=== PATIENT | female | born 1965 | race Caucasian/White ===

== ENCOUNTER → 2017-12-04 12:18 | Outpatient (CLI) | payer BC, SELFPAY ==
[2017-12-04 13:55] LABS: Estradiol 25.3 pg/mL
[2017-12-04 13:59] LABS: Progesterone Level 8.14 ng/mL (See Comment)
[2017-12-09 12:52] LABS: HPV Reflexed? NOT INDICATED
== END ==
PROVIDERS: Visit Provider Obstetrics & Gynecology
DX: Z12.4 Encounter for screening for malignant neoplasm of cervix (principal); Z78.0 Asymptomatic menopausal state
CPT/HCPCS: 36415; 82670; 84144; 88175; G0145

== ENCOUNTER → 2018-05-26 06:53 | Outpatient (CLI) | payer BC, SELFPAY ==
--- NOTE | 2018-05-26 06:58 | CT_ITS ---
STUDY: CT MAXILLOFACIAL SINUSES REASON FOR EXAM: Female, 52 years old. Chronic sinusitis worse on the left side. RADIATION DOSAGE (If Supplied By Facility): CTDIvol = ( 33.06 ) mGy, DLP = ( 792.53 ) mGycm TECHNIQUE: The patient was scanned in a multi detector CT scanner. High resolution axial imaging was performed without the administration of intravenous contrast material. Sagittal and coronal images were reconstructed. Individualized dose optimization techniques were used for this CT. COMPARISON: None. FINDINGS: FRONTAL SINUSES: Normal aeration, without mucosal inflammatory disease. ETHMOIDAL SINUSES: Mild degree of mucosal thickening of the ethmoid sinuses. MAXILLARY SINUSES: There is a 1.2 cm x 0.9 cm mucosal retention cyst or polyp along the anterior medial aspect of the left maxillary sinus. SPHENOIDAL SINUSES: Normal aeration, without mucosal inflammatory disease. There is patency of the bilateral maxillary infundibuli with normal uncinate processes, ethmoid bullae, and hiatus semilunaris. Normal bilateral middle turbinates. There is hypertrophy of the right inferior nasal turbinate. Normal midline nasal septum. There is patency of the bilateral nasal airways. The visualized osseous structures are normal. The visualized bilateral orbital contents are normal. CT/Sinus/Facial Bone IMPRESSION: Small mucosal polyp or retention cyst along the anterior medial aspect of the left maxillary sinus. Mild degree of mucosal thickening of the ethmoid sinuses bilaterally. Electronically Signed: Vu Bergman, at 11:21 EDT , Service support ,
== END ==
PROVIDERS: Family Provider Internal Medicine; PCP Internal Medicine; Referring Provider Otolaryngology Otolaryngology/Facial Plastic Surgery; Visit Provider Otolaryngology Otolaryngology/Facial Plastic Surgery
DX: J32.9 Chronic sinusitis, unspecified (principal)
CPT/HCPCS: 70486

== ENCOUNTER 2019-01-08 09:38 | Day surgery (SDC) | payer OTHER, SELFPAY ==
[2019-01-08] VITALS (9 sets, daily range): BP systolic 91–138; BP diastolic 60–97; PULSE 57–86; RESP 16; TEMP 36.3–37.1; O2SAT 92–100; BMI 26.5
[2019-01-08] MEDS: Oxymetazoline 0.05% 1 SPRAY SPRAY.BTL 15 SPRAY (11:15)
--- NOTE | 2019-01-08 11:15 | SEP_PTH ---
PATIENT: ARMANI MELCHOR LOC: [facility] [place] U#:[id number] AGE/SX: 53/F ROOM: RE01/08/[address]: Jenaro Elam MD : 1965 BED: DIS: 01/08/2019 SPEC #: [id number] RECD: 01/08/19 12:42 STATUS: MYRON RENathan #: [id number] ELLE: 01/08/19 11:[address]: Jenaro Elam DEPT: SURGICAL PATHOLOGY RECD BY: Dave Lay ENTERED: 01/08/19 13:53 SP TYPE: SEPTUM OTHR DR: Dr. Tawana Lange MD Tissues: Nasal septum, NOS Procedures: Decalcification bone/plaque Surgery Specimen Level III HEADER OPERATION: Septoplasty PRE-OP DIAGNOSIS: Nasal congestion; deviated nasal septum; hypertrophy of turbinates TISSUE SUBMITTED: Septum and cartilage MICROSCOPIC DIAGNOSIS Septum and cartilage, septoplasty: Cartilage and bone with focal fibrosis; clinically deviated nasal septum and turbinate hypertrophy. CE:griselda 01/14/19 MICROSCOPIC DESCRIPTION Slides are reviewed. GROSS DESCRIPTION Received in fixative is one container labeled with the patient's name and designated septum and cartilage. The specimen consists of multiple irregular fragments of pink-juarez bone and cartilage that in aggregate measure 3 x 1.5 x 0.2 cm. The specimen is totally submitted in one cassette after decalcification. / AM:griselda 01/08/19 TC:5 CPT: 84076, 44079
[2019-01-08] MEDS: Mixture 30 ML Bottle TOPICAL (11:20)
[2019-01-08] MEDS: Neomycin/Bacitracin/Polymyxin Ointment 1 APPLIC (11:49)
--- NOTE | 2019-01-08 11:57 | PCM.DC ---
You will use the following diet at home:: No restrictions Discharge Activity: Return to Normal Activity - Head of bed elevation. Do not blow nose, rather use saline spray to rinse, sniff and expectorate as often as desired. May use Afrin nasal spray to reduce any oozing and/or reduce congestion. Take antibiotic as prevention of infection. Allergies/Adverse Reactions: Allergies latex Allergy (Verified 01/08/19 10:02) Rash Medications to take at Discharge Estradiol [Vivelle-Dot] 1 patch TOPICAL MOFR 09/14/13 Fluticasone 0.05% [Flonase Nasal [place]] 1 spray NASAL DAILY PRN 09/14/13 Levothyroxine [Synthroid] 125 mcg PO DAILY 09/14/13 Lisinopril [Zestril] 10 mg PO DAILY 09/14/13 Progesterone, Micronized [Progesterone] 200 mg PO DAILY 09/14/13 Buspirone HCl 7.5 mg PO TID 01/01/19 Calcium Carbonate [Calcium] 500 mg PO DAILY 01/01/19 Cholecalciferol (Vitamin D3) [Vitamin D3] 50 mg PO BID 01/01/19 Primary Care Physician: Tawana Lange MD [Primary Care Provider] - Test Results: Test results from this visit will be discussed in further detail at your follow-up appointment, if applicable. Please Follow Up With: Jenaro Elam MD - follow up appointment in 8-12 days to remove splints.
--- NOTE | 2019-01-08 12:02 | DCINST_ITS ---
You will use the following diet at home:: No restrictions Discharge Activity: Return to Normal Activity - Head of bed elevation. Do not b low nose, rather use saline spray to rinse, sniff and expectorate as often as desired. May use Afrin nasal spray to reduce any oozing and/or reduce congestion. Take antibiotic as prevention of infection. Allergies/Adverse Reactions: Allergies latex Allergy (Verified 01/08/19 10:02) Rash Medications to take at Discharge Estradiol [Vivelle-Dot] 1 patch TOPICAL MOFR 09/14/13 Fluticasone 0.05% [Flonase Nasal [place]] 1 spray NASAL DAILY PRN 09/14/13 Levothyroxine [Synthroid] 125 mcg PO DAILY 09/14/13 Lisinopril [Zestril] 10 mg PO DAILY 09/14/13 Progesterone, Micronized [Progesterone] 200 mg PO DAILY 09/14/13 Buspirone HCl 7.5 mg PO TID 01/01/19 Calcium Carbonate [Calcium] 500 mg PO DAILY 01/01/19 Cholecalciferol (Vitamin D3) [Vitamin D3] 50 mg PO BID 01/01/19 Primary Care Physician: Tawana Lange MD [Primary Care Provider] - Test Results: Test results from this visit will be discussed in further detail at your follow- up appointment, if applicable. Please Follow Up With: Jenaro Elam MD - follow up appointment in 8-12 days to remove splints.
--- NOTE | 2019-01-08 12:58 | OP.PCM_ITS ---
Report of Operation Date of Procedure: 01/08/19 Pre-Operative Diagnosis: Nasal airway obstruction, septal deformity, turbinate hypertrophy Post-Operative Diagnosis: Same Surgery/Procedure Performed:: Nasal septoplasty, therapeutic outfracture and submucosal cautery of inferior turbinates using Alan bipolar probe Anesthesiologist: Donato Hoffman CRNA Estimated Blood Loss (mL): 30 Description of Procedure: The patient was transported to the operating room and placed on the OR table in the supine position. After the administration of adequate general endotracheal anesthesia the patient was appropriately positioned eyes were treated taped closed and a head drape was applied. The nasal cavity was inspected. Turbinates were very hypertrophic and subsequently did diminish after application with Afrin spray. Additionally pledgets soaked in Mateusz-Synephrine Xylocaine were utilized to bring about further vasoconstriction and decongestion. After establishing decongestion it was obvious that the septum had a huge spur at the chondro-osseous junction did literally impaled the left lateral nasal wall. This is been the main issue with regard to her left-sided nasal congestion that occurred regardless of the control of allergy and turbinate engorgement. 1% Xylocaine with epinephrine 1-100,000 was used to infiltrate the anterior aspect of the septum including injecting along the left quadrangular cartilage to the region of the spur. After allowing adequate time for vasoconstrictive effect to take place a right hemitransfixion incision was created with a #15 scalpel and the soft tissues were elevated in the subperichondrial plane all along the left side of the septum. Using both Jaspal and [place] elevators the soft tissue was elevated and subsequently the posterior spur was skeletonized. Just anterior to it and incision was created so that a posterior tunnel could be elevated on the right side as well fully skeletonizing the posterior spur. With double-action scissors and forceps the spur structure was taken out in pieces. A small tear in the mucosa did occur due to the stellate nature of the spur but this cut or tear would have been placed intentio mary kay to allow egress of any fluids from between the mucoperichondrial/mucoperiosteal flaps. Once this had been excised it was evident that the septum was quite midline and the hemitransfixion incision was closed with interrupted suture 4-0 chromic. The inferior turbinates were then laterally outfractured into the inferior meatus and treated with the Alan bipolar probe. Submucosal cautery was achieved using this device. The probe was placed into the anterior aspect of the inferior turbinate and current was then applied. When blanching was evident the probe was advanced the length of the turbinate accomplishing submucosal cautery in the inferomedial aspect. The posterior tips received additional cautery with benefit of the 0 degree endoscope for guidance. Intranasal Richardson splints were then placed after first coating them and antibiotic ointment. The splints were secured with a single suture of 3-0 Ethilon. A nasal drip pad was applied and the procedure terminated. Patient tolerated the procedure well, did not sustain any intraoperative anesthetic or surgical complication, was extubated in the operating room and taken to the PACU where she was noted to be in satisfactory condition. Jenaro Elam MD
== END 2019-01-08 14:16 | disposition home or self-care (01) ==
LOC: SDC 09:39 → AC 09:41
PROVIDERS: Family Provider Internal Medicine; PCP Internal Medicine; Referring Provider Otolaryngology Otolaryngology/Facial Plastic Surgery; Visit Provider Otolaryngology Otolaryngology/Facial Plastic Surgery
PROC: (CPT 30520; principal; 2019-01-08 11:00)
DX: J34.2 Deviated nasal septum (principal); J34.3 Hypertrophy of nasal turbinates; R09.81 Nasal congestion; I10 Essential (primary) hypertension; Z85.850 Personal history of malignant neoplasm of thyroid
CPT/HCPCS: 30140; 30520; 88304; 88311; J7120; J2405

== ENCOUNTER 2019-01-23 23:15 | Emergency (ER) | payer OTHER, SELFPAY ==
[2019-01-08 10:06] VITALS: BMI 26.5
[2019-01-23 23:16] VITALS: BP 128/81; PULSE 114; RESP 16; TEMP 37; O2SAT 98; BMI 26.4
--- NOTE | 2019-01-24 00:48 | ED.DCSUM_ITS ---
- ER Visit Summary Date of Service: 01/24/19 Chief Complaint: Nosebleed History of Present Illness: The patient is a 53 F who presents with a nosebleed. Started today. She had bleeding from the right nares. She held pressure and it seemed to slow down. She denies any trauma. 2 weeks ago she had sinus s urgery with a septoplasty done by Dr. Elam. She denies any pain. There is no bleeding at this time. Physical Examination: Vital signs are reviewed. HEENT exam reveals no active bleeding. There is dried blood in the left nares. I am able to see some postsurgical changes. She is not swallowing any blood at this time. Her neck is supple. Neurologic exam normal Test Results: None performed Emergency Department Course and Treatment: Patient had Afrin on cotton balls placed into the nose. There is no active bleeding at this time. I still do not know where the bleeding was coming from but she is not bleeding. She is on no blood thinning medications. Patient will be discharged to call her ear nose and throat doctor in the morning. Treatment Plan: [] Disposition: Discharge Impression: Epistaxis This note was generated with [employer] dictation software. It may contain incorrect words, spelling, and punctuation that were not noted in review of the chart prior to signing ED Disposition - Plan for ED Patient: Referrals: Tawana Lange MD [Primary Care Provider] -
--- NOTE | 2019-01-24 00:50 | ED.DEP ---
ED Disposition - Plan for ED Patient: Disposition: Home or Assisted Living Instructions: Nosebleed Referrals: Tawana Lange MD [Primary Care Provider] -
[2019-01-24 00:52] VITALS: PULSE 94; RESP 16; O2SAT 94
[2019-01-24] MEDS: Oxymetazoline 0.05% 1 SPRAY SPRAY.BTL 2 SPRAY NASAL (00:52)
== END 2019-01-24 00:54 | disposition home or self-care (01) ==
PROVIDERS: Emergency Provider Emergency Medicine; Family Provider Internal Medicine; PCP Internal Medicine
DX: R04.0 Epistaxis (principal)
CPT/HCPCS: 30901; 99282

== ENCOUNTER → 2019-02-11 10:44 | Outpatient (CLI) | payer OTHER, SELFPAY ==
[2019-01-23 23:16] VITALS: BMI 26.4
[2019-02-11 13:24] LABS: Estradiol 23.9 pg/mL
[2019-02-11 13:54] LABS: Progesterone Level 142.36 ng/mL (See Comment)
[2019-02-18 09:56] LABS: HPV HC, High Risk Negative (Negative); HPV Reflexed? YES, CHARGE PATIENT
== END ==
PROVIDERS: Visit Provider Obstetrics & Gynecology
DX: N95.1 Menopausal and female climacteric states (principal); Z12.4 Encounter for screening for malignant neoplasm of cervix
CPT/HCPCS: 36415; 82670; 84144; 87624; 88175; G0145

== ENCOUNTER → 2019-04-30 16:10 | Outpatient (CLI) | payer OTHER, SELFPAY ==
[2019-04-30 17:39] LABS: Estradiol 31.7 pg/mL
[2019-04-30 18:02] LABS: Progesterone Level 0.37 ng/mL (See Comment)
== END ==
PROVIDERS: Family Provider Internal Medicine; PCP Internal Medicine; Referring Provider Obstetrics & Gynecology; Visit Provider Obstetrics & Gynecology
DX: N95.1 Menopausal and female climacteric states (principal)
CPT/HCPCS: 36415; 82670; 84144

== ENCOUNTER → 2021-03-29 | Outpatient (CLI) | payer OTHER, SELFPAY ==
--- NOTE | 2021-03-29 15:00 | EMB_PTH ---
PATIENT: ARMANI MELCHOR LOC: [facility] U#:[id number] AGE/SX: 55/F ROOM: RE03/29/[address]: Dr. Virginie Zafar MD : 1965 BED: DIS: 03/29/2021 SPEC #: [id number] RECD: 03/29/21 16:54 STATUS: MYRON BERTRAND #: [id number] ELLE: 03/29/21 15:[address]: Virginie Sierra DEPT: SURGICAL PATHOLOGY RECD BY: Karlos Evans ENTERED: 03/30/21 09:58 SP TYPE: ENDOM BX/C OT DR: Dr. Tawana Lange MD Tissues: Endometrium, NOS Procedures: Surgery Specimen Level IV HEADER OPERATION: Endometrial biopsy PRE-OP DIAGNOSIS: N95.0 TISSUE SUBMITTED: Endometrial biopsy MICROSCOPIC DIAGNOSIS Endometrium, biopsy: Strips of benign superficial glandular mucosa. Rare fragments of benign squamous mucosa. AM:griselda 03/31/2021 MICROSCOPIC DESCRIPTION Slides are reviewed. GROSS DESCRIPTION Received in fixative is one container labeled with the patient's name and designated endometrial biopsy. The specimen consists of multiple irregular fragments of juarez-pink soft tissue mixed with mucoid tissue and a few fragments of hemorrhagic tissue that in aggregate measure 2 x 2 x 0.2 cm. The specimen is totally submitted in one cassette. / SJ:rg 03/30/21 TC:5 CPT: 77246
[2021-03-29 16:33] LABS: Bacteria 0 SEEN /hpf (None Seen); Red Blood Cells-Urine 0 SEEN /hpf (0-5)
[2021-03-29 17:01] LABS: Color, Urine Yellow (Yellow); Glucose, Dipstick Normal (Normal); Ketone-Dipstick 5 mg/dl (Negative); Leukocyte Esterase-Dipstick Negative /ul (Negative); Nitrite-Dipstick Negative (Negative); Occult Blood-Urine Negative /ul (Negative); Protein-Dipstick Negative (Negative); Urine Bilirubin Dipstick Negative (Negative); Urine Clarity Clear (Clear); Urine Urobilinogen Normal (Normal)
[2021-03-29 17:28] LABS: Squamous Epithelial Cells - UA 0-5 SEEN /hpf (5-10)
[2021-03-29 17:29] LABS: Transitional Epithelial - Ur 0-5 SEEN /hpf (0-5); White Blood Cells 0-5 SEEN /hpf (0-5)
[2021-03-29 17:31] LABS: Mucous, Urine RARE /hpf (<or=2+)
[2021-04-05 08:15] LABS: HPV APTIMA, High Risk Negative (Negative)
== END | disposition home or self-care (01) ==
LOC: LABSPEC 16:24
PROVIDERS: PCP Internal Medicine; Visit Provider Obstetrics & Gynecology
DX: N95.0 Postmenopausal bleeding (principal); R30.0 Dysuria; Z12.4 Encounter for screening for malignant neoplasm of cervix
CPT/HCPCS: 81001; 87086; 87088; 87624; 88175; 88305; G0145

== ENCOUNTER 2022-06-29 13:23 | Day surgery (SDC) | payer OTHER, SELFPAY ==
--- NOTE | 2022-06-18 13:21 | PCM.HP.BLA ---
History and Physical Date of Admission: 06/29/22 Pre-Op History and Physical ? HPI: The patient is a 56 year old female presenting for discusison regarding PMB and hyperplasia w/o atypia on EMB specimen. Pt reports no concerns today ? pre-operative visit. She is scheduled for Hysteroscopy D&C and inseriton of Mirena IUD, for Endometrial hyperplasia on 06/29/22. Procedure discussed along with risks, benefits and complications. Other alternatives discussed for management. Consent form signed? Yes. ? ? PAST MEDICAL HISTORY PAST MEDICAL HISTORY Diagnosis Date ? Allergic rhinitis ? ? Hypertension ? ? Hypothyroidism, iatrogenic ? ? Thyroid cancer (HCC) ? ? papillary cancer thyroid ? ? PAST SURGICAL HISTORY PAST SURGICAL HISTORY Procedure Laterality Date ? COLONOSCOPY FLX DX W/COLLJ SPEC WHEN PFRMD ? 01/24/15 ? Colonoscopy ? THYROIDECTOMY TOTAL/COMPLETE ? ? ? 2005 ? ? ? CURRENT MEDICATIONS Current Outpatient Medications Medication Sig Dispense Refill ? progesterone micronized (PROMETRIUM) 200 mg capsule take 1 capsule by mouth at bedtime for 25 DAYS EACH MONTH 60 capsule 1 ? estradiol (IRVING, VIVELLE-DOT) 0.025 mg/24 hr Apply 1 Patch as directed twice daily. (Patient not taking: Reported on 06/11/2022) ? ? ? estradiol (ESTRACE) 0.01 % (0.1 mg/gram) vaginal cream Use 1 g vaginally as directed. Insert one applicator full vaginally x 14 nights then twice weekly. (Patient not taking: Reported on 06/11/2022) 42.5 g 3 ? lisinopril (ZESTRIL, PRINIVIL) 10 mg tablet Take 1 tablet by mouth once daily. 90 tablet 3 ? cholecalciferol (VITAMIN D-3) 5,000 unit tab Takes 1 tablet every other day ? ? ? levothyroxine (SYNTHROID) 125 mcg tablet Take 1 tablet by mouth once daily. 90 tablet 0 ? fluticasone (FLONASE) 50 mcg/actuation nasal spray Use 2 Sprays in each nostril once daily. Rinse mouth after use. 1 Each 11 ? fexofenadine-pseudoephedrine (CATHERINE D) 60-120 mg per tablet Take 1 tablet by mouth every 12 hours as needed (sinus congestion/cold symptoms). ? 0 ? No current facility-administered medications for this visit. ? ? ALLERGIES: Latex and Seasonal Allergies ? PERSONAL HISTORY: SOCIAL HISTORY Social History ? Tobacco Use ? Smoking status: Former ? Smokeless tobacco: Never Substance Use Topics ? Alcohol use: Yes ? ? Comment: occasional ? Drug use: No ? FAMILY HISTORY: FAMILY HISTORY FAMILY HISTORY Problem Relation Age of Onset ? Allergies Mother ? ? Hypertension Mother ? ? Stroke Mother ? ? ? REVIEW OF SYMPTOMS: negative except as noted above PHYSICAL EXAMINATION: ? VITALS: Blood pressure 138/86, weight 149 lb (67.6 kg), last menstrual period 05/12/2014. ? GENERAL: The patient is well nourished, well hydrated in no acute distress. , The patient is oriented to time, place, and person. NECK: full range of motion LUNGS: Clear to auscultation bilaterally. no wheezes, rhonchi or rales HEART: Regular rate and rhythm, Normal heart sounds, and No murmurs or gallops ? IMPRESSION: PMB with Hyperplasia without atypia ? ? Pre and post op instructions reviewed ? PLAN: Hysteroscopy, D&C, polypectomy MIRENA iud insertion ? Pt has been counseled on risks/benefits and alternatives of surgery including but not limited to anesthesia, bleeding, infection, uterine perforation with subsequent injury to pelvic structures including bowel, bladder, ureters and vessels. Pt wishes to proceed with surgery at this time. ? I have reviewed and updated past medical and surgical history, medications and allergies Antoinette Jones MD ?4:26 PM
[2022-06-29] VITALS (12 sets, daily range): BP systolic 43–126; BP diastolic 31–81; PULSE 23–78; RESP 16; TEMP 37–37.1; O2SAT 16–100; BMI 25.0
--- NOTE | 2022-06-29 | EMB_PTH ---
PATIENT: ARMANI MELCHOR LOC: [facility] [place] U#:[id number] AGE/SX: 56/F ROOM: RE06/29/[address]: Dr. Antoinette Diaz, MDDOB: 1965 BED: DIS: 06/29/2022 SPEC #: [id number] RECD: 07/02/22 08:08 STATUS: MYRON HANNANathan #: [id number] ELLE: 06/29/22 00:[address]: Antoinette Diaz DEPT: SURGICAL PATHOLOGY RECD BY: Karlos Evans ENTERED: 07/02/22 10:12 SP TYPE: ENDOM BX/C DAMIÁN DR: Dr. Tawana Lange MD Tissues: Endometrium, NOS Procedures: Surgery Specimen Level IV HEADER OPERATION: Hysteroscopy, D & C, possible polypectomy, Symphion, Mirena IUD PRE-OP DIAGNOSIS: PM with hyperplasia TISSUE SUBMITTED: Endometrial curettings MICROSCOPIC DIAGNOSIS Endometrial curettings: Inactive endometrium with focal cystic changes. Fragments of myometrium. See comment. AM:griselda 07/03/2022 COMMENT The specimen predominantly consists of fragments of myometrium. Clinical correlation and appropriate follow up are necessary. Please make reference to previous specimen ([id number]), endometrium, biopsy with diagnosis of ?strips of benign superficial glandular mucosa and rare fragment of benign squamous mucosa.? MICROSCOPIC DESCRIPTION Slides are reviewed. GROSS DESCRIPTION Received in fixative is one container labeled with the patient's name and designated endometrial curettings. The specimen consists of multiple irregular fragments of juarez tissue that in aggregate measure 2 x 0.6 x 0.1 cm. The specimen is totally submitted in one cassette. / AM:griselda 07/02/2022 TC:5 CPT: 21454
--- NOTE | 2022-06-29 14:07 | DCINST_ITS ---
Discharge Instructions Procedure D&C Diet Discharge Diet: No restrictions Activity May resume sexual activity in: 1 week Dressing / Incision Call your doctor if you observe: Fever of 101 or Higher, Inability to urinate, Using more than 1 pad per hour and Uncontrolled pain Follow Up Care Please Follow Up With: Antoinette Diaz MD When: 1-2 weeks post OP if you need an appointment please call [phone] Test Results: Test results from this visit will be discussed in further detail at your follow- up appointment, if applicable. Discharge Plan Admission Attending Provider: Antoinette Diaz Primary Care Provider: Tawana Lange Discharge Orders/Prescriptions Prescriptions: No Action levothyroxine 137 MCG tablet 125 mcg PO DAILY lisinopril 10 MG tablet 10 mg PO DAILY fluticasone propionate 1 SPRAY spray,suspension 1 spray NASAL DAILY PRN (Reason: Allergies) progesterone micronized 100 MG capsule 200 mg PO DAILY cholecalciferol (vitamin D3) [Vitamin D3] 400 UNIT capsule 500 mg PO DAILY Referrals / Follow Up: Tawana Lange MD [Primary Care Provider] - Disposition Disposition (needs filled in before D/C Order can be placed): Home, Self Care
--- NOTE | 2022-06-29 14:32 | OP.PCM_ITS ---
Report of Operation Date of Procedure: 06/29/22 Pre-Operative Diagnosis: PMB, Endometrial hyperplasia, endometrial polyp Post-Operative Diagnosis: Same Surgery/Procedure Performed:: Hysteroscopy, D&C, Polypectomy , Mirena IUD insertion Description of Surgical Findings:: Both tubal ostia visualized. Tiny Polyp noted on posterior aspect of uterus. Surgeon: Antoinette Diaz Type of Anesthesia: MAC Specimen's removed: endometrial curettings, endometrial polyp Drains: none Estimated Blood Loss (mL): 0cc Fluids Replaced: 500 Description of Procedure: Informed consent was obtained the patient was taken the operating room she was placed in supine position. She was given anesthesia. She was then placed in the [facility] where she was prepped and draped in the normal sterile fashion. At this time the weighted speculum was placed in the posterior fornix of vagina. Single-tooth tenaculum was used to gently grasp the anterior lip the cervix. At this time the uterine cavity was sounded to approximately 10 cm. Gentle dilatation was performed once adequate dilatation of the cervix was achieved the hysteroscope using normal saline as a distention medium was placed. Tubal ostia visualized, tiny endometrial polyp noted on posterior aspect of uterus otherwise it appeared atrophic. Symphion resecting device used to obtain endometrial curettings and to perform polypectomy. Tissue will be sent to pathology for evaluation. Mirena IUD device opened- Placed at uterine fundus. IUD strings cut to 2cm from OS. Tenaculum removed. Good hemostasis. Instrument, lap count correct x 2. fluid deficit 350cc Vaginal Sweep was negative. Grafts/Implants Used: Mirena IUD Procedure Start Time: 14:45 Procedure Stop Time: 14:54 Complications none Admit VTE Documentation VTE Present on Admission: Yes VTE Mechan Device Prophylaxis: SCD's VTE Pharm Prophylaxis ordered?: No
--- NOTE | 2022-06-29 15:12 | EKG12_ITS ---
Test Reason : SLOW HR Blood Pressure : / mmHG Vent. Rate : 069 BPM Atrial Rate : 069 BPM P-R Int : 158 ms QRS Dur : 096 ms QT Int : 420 ms P-R-T Axes : 064 057 049 degrees QTc Int : 450 ms Normal sinus rhythm Normal ECG When compared with ECG of 14-SEP-2013 09:03, No significant change was found Confirmed by PINKY FUENTES, TRACI ([id number]), mapping editor SHINE ORELLANA ([id number]) on 07/03/2022 12:55:21 PM Referred By: Antoinette Diaz Confirmed By:TRACI VANCE MD
[2022-06-29 16:13] LABS: Troponin-I HS 3 pg/mL (3.0-54.0)
[2022-06-29] MEDS: Lactated Ringers 1,000 ML 15 ML IV (16:15)
[2022-06-29] MEDS: HYDROcodone Bitartrate/Apap 5/325 Tablet PO (17:30)
--- NOTE | 2022-06-29 17:59 | SUR.PHASEI ---
AT APPROXIMATELY 1505, MONITOR SHOWS SINUS BRADYCARDIA WITH RATE DROPPING TO 40s. PATIENT IS DROWSY, BUT ABLE TO CONVERSE WITH NURSE. O2 SAT IS 94% ON ROOM AIR. DR HUDDLESTON, ANESTHESIA, STAT PAGE. O2 APPLIED AT 4L/NC. IV LACTATED RINGERS AT WIDE OPEN. HOB FLAT. ATROPINE 0.4 MG IV GIVEN BY DR HUDDLESTON AT 1510. MONITOR SHOW SINUS BRADYCARDIA WITH JUNCTIONAL AND VENTRICULAR ESCAPE BEATS; RATE 20 AT 1510. PER MONITOR, HEART RATE RETURNED TO SINUS RHYTHM 70s IN APPROXIMATELY 7-10 MIN. SBP RETURNED TO THE 90s IN APPROXIMATELYH 20 MIN. PATIENT NEVER LOST CONSCIOUSNESS. STAT EKG DONE. STAT TROPONIN LEVEL DRAWN AND SENT TO LAB. RECORD OF PATIENT'S VITAL SIGNS DURING THIS PERIOD OF TIME CAN BE FOUND IN CHART.
--- NOTE | 2022-06-29 18:26 | SUR.PHASEI ---
AT APPROXIMATELY 1520, DR HUDDLESTON SPOKE WITH DR DOSHI AND UPDATED HER ON THE PATIENT'S CONDITION. DR. DOSHI RECOMMENDS THE PATIENT FOLLOW UP WITH A AIRCRAFT STRESS ANALYST IN THE NEAR FUTURE.
== END 2022-06-29 17:40 | disposition home or self-care (01) ==
LOC: SDC 13:25 → AC 13:26
PROVIDERS: Anesthesiology; PCP Internal Medicine; Referring Provider Obstetrics & Gynecology; Visit Provider Obstetrics & Gynecology
PROC: 0UB98ZZ Excision of Uterus, Via Natural or Artificial Opening Endoscopic (ICD-10-PCS; CPT 58558; principal; 2022-06-29 14:40)
DX: N85.00 Endometrial hyperplasia, unspecified (principal); I10 Essential (primary) hypertension; E03.9 Hypothyroidism, unspecified; J45.909 Unspecified asthma, uncomplicated; F32.A Depression, unspecified; Z79.890 Hormone replacement therapy; Z79.899 Other long term (current) drug therapy; Z87.891 Personal history of nicotine dependence
CPT/HCPCS: 58558; 58300; 00952; 84484; 88305; 93005; J7120; J2405

== ENCOUNTER → 2022-10-01 | Outpatient (CLI) | payer OTHER, SELFPAY ==
--- NOTE | 2022-10-01 09:50 | ECHOD_ITS ---
Reason For Study: Arrhythmia Procedure This was a 2D Doppler, Color Flow transthoracic echocardiogram. Exam performed in department. Left Ventricle Normal LV size. Left ventricular systolic function is normal. The estimated ejection fraction is 60 %. Stage 1 diastolic dysfunction. No regional wall motion abnormalities noted. Right Ventricle Normal RV size. Normal systolic function. Atria Normal left atrium. Normal right atrium. Mitral Valve Normal mitral valve. Tricuspid Valve Normal tricuspid valve. Mild tricuspid valve insufficiency. Mild pulmonary hypertension. Aortic Valve Trisinus/trileaflet aortic valve. Great Vessels Normal aortic root. The pulmonary artery is normal size. Normal inferior vena cava. Pericardium/Pleural No pericardial effusion. MMode/2D Measurements & Calculations LVIDd: 4.0 cm IVSd: 0.96 cm Ao root diam: 3.1 cm LVIDs: 2.1 cm LVPWd: 0.88 cm RVDd: 2.7 cm FS: 46.0 % LAV(MOD-bp): 22.6 ml LVAd ap4: 16.0 cm2 SV(MOD-sp4): 22.2 ml LAV(MOD-bp) Indexed: 13.2 ml/m2 LVLd ap4: 6.4 cm LAV(MOD-sp2): 19.6 ml EDV(MOD-sp4): 33.1 ml LAV(MOD-sp4): 22.7 ml EDV(sp4-el): 34.0 ml LVAs ap4: 7.8 cm2 LVLs ap4: 4.7 cm ESV(MOD-sp4): 10.9 ml ESV(sp4-el): 10.9 ml EF(MOD-sp4): 67.0 % EF(sp4-el): 68.0 % SV(sp4-el): 23.1 ml LA dimension(2D): 2.7 cm LA A4 area: 12.2 cm2 RA A4 area: 10.3 cm2 Time Measurements MV dec time: 0.22 sec Doppler Measurements & Calculations MV E max erasto: 72.6 cm/sec Lat Peak E' Erasto: 8.2 cm/sec Med Peak E' Erasto: 5.1 cm/sec MV A max erasto: 95.9 cm/sec E/E' lat: 8.9 E/E' med: 14.3 MV E/A: 0.76 Ao V2 max: 157.6 cm/sec LV V1 max: 138.4 cm/sec MV dec slope: 333.2 cm/sec2 Ao max P.9 mmHg LV V1 max P.7 mmHg Ao V2 mean: 107.7 cm/sec Ao mean P.3 mmHg Ao V2 VTI: 29.9 cm PA V2 max: 94.1 cm/sec TR max erasto: 240.7 cm/sec TR max P.2 mmHg ECHO/Echo Complete Interpretation Summary Normal LV size. Left ventricular systolic function is normal. The estimated ejection fraction is 60 %. Mild tricuspid valve insufficiency. Mild pulmonary hypertension. Stage 1 diastolic dysfunction. Ordering Physician: Joaquin Sorto Referring Physician: Tawana Lange Performed By: Ana Ruth, RDKELSIE, RVT
== END | disposition home or self-care (01) ==
LOC: CVS 09:49
PROVIDERS: PCP Internal Medicine; Referring Provider Internal Medicine Cardiovascular Disease; Visit Provider Internal Medicine Cardiovascular Disease
DX: R00.1 Bradycardia, unspecified (principal); I27.20 Pulmonary hypertension, unspecified; I36.1 Nonrheumatic tricuspid (valve) insufficiency
CPT/HCPCS: 93306

== ENCOUNTER 2023-10-17 19:44 | Emergency (ER) | payer OTHER, SELFPAY ==
[2023-10-17 19:45] VITALS: BP 165/87; PULSE 88; RESP 16; TEMP 36.6; O2SAT 98; BMI 27.0
--- NOTE | 2023-10-17 19:59 | CT_ITS ---
STUDY: CT ABDOMEN AND PELVIS WITHOUT CONTRAST REASON FOR EXAM: Female, 58 years old. L flank pain RADIATION DOSAGE (If Supplied By Facility): CTDIvol = ( 8.05 ) mGy, DLP = ( 392.22 ) mGycm TECHNIQUE: Transaxial images were obtained from the dome of the diaphragm to the symphysis pubis without oral contrast, and without intravenous contrast. Sagittal and coronal images were reconstructed. Individualized dose optimization techniques were used for this CT. COMPARISON: None. FINDINGS: Tiny calcified granulomata in the left lower lobe.. The visualized portions of the heart are within normal limits. Small hiatal hernia is noted Normal liver. Normal gallbladder and extrahepatic biliary system. Normal spleen. Normal pancreas. Normal bilateral adrenal glands. Normal right kidney. Mild to moderate left renal pelvocaliectasis and hydroureter with stranding in the perinephric fat secondary to tiny calculus measuring 2 to 3 mm in the distal intramural portion of the ureter. Normal visualized stomach. Normal small intestine. Minor diverticular changes of the colon without evidence for acute diverticulitis. No evidence for acute appendicitis Minor atherosclerotic changes of the aorta without evidence for aneurysm. Normal inferior vena cava. Normal retroperitoneum. Normal urinary bladder. Mild prominence of the uterine fundus containing IUD. Normal abdominal wall. Normal osseous structures. CT/Abdomen/Pelvis without Cont IMPRESSION: Mild to moderate left renal obstruction secondary to tiny calculus in the distal intramural portion of the left ureter. Electronically Signed: Moncho Candelario MD at 22:01 EDT ,
--- NOTE | 2023-10-17 20:04 | EX.ED.DYSGE1 ---
HPI <ELODIA Alegria - Last Filed: 10/17/23 22:19> History of Present Illness Chief Complaint: Flank Pain Narrative Narrative: Patient presenting today due to sudden and severe left-sided flank pain that started this afternoon. She reports that she has had dysuria for little over a week now, she has been on 2 different antibiotics with no relief, she reports that her PCP did obtain a UA that showed a little bit of blood but overall was unremarkable, they also tried to treat her for a yeast infection with Diflucan but she is still continuing to have dysuria. She did not have flank pain until today. She denies any history of kidney stones. She reports that the pain is sharp and waxing and waning and when it becomes severe she becomes nauseous, she has had 3 episodes of vomiting today. She denies fevers, chills, diarrhea, and abdominal pain. PFSH <ELODIA Alegria - Last Filed: 10/17/23 22:19> [facility] Medical History Alcohol use Allergic rhinitis Asthma Cancer Endometrial hyperplasia Essential hypertension History of concussion (~1981) Hypothyroidism Non-smoker Thyroid disease Wears glasses Home Medications lisinopril 10 mg tablet 10 mg PO DAILY 09/14/13 [History Last Taken 09/16/13 10 MG] cholecalciferol (vitamin D3) 125 mcg (5,000 unit) tablet 125 mcg PO Q OTHER DAY 09/17/22 [History Last Taken Unknown] levothyroxine 125 mcg tablet 125 mcg PO DAILY 09/17/22 [History Last Taken Unknown] Bonafide Relizen 2 cap PO DAILY 09/19/22 [History Last Taken Unknown] fexofenadine 180 mg tablet (Ingrid Allergy) 180 mg PO DAILY 09/19/22 [History Last Taken Unknown] fluticasone propionate 50 mcg/actuation nasal spray,suspension 2 spray intranasal DAILY PRN Allergies 09/19/22 [History Last Taken Unknown] ondansetron 4 mg disintegrating tablet 4 mg PO Q8H PRN PRN Nausea #10 tabs 10/17/23 [Rx Last Taken Unknown] oxycodone-acetaminophen 5 mg-325 mg tablet (Percocet) 1 tab PO Q6H PRN pain 3 days #10 tabs 10/17/23 [Rx Last Taken Unknown] tamsulosin 0.4 mg capsule (Flomax) 0.4 mg PO DAILY #5 caps 10/17/23 [Rx Last Taken Unknown] Allergy/AdvReac Type Severity Reaction Status Date / Time latex Allergy Rash Verified 09/19/22 10:27 Seasonal Allergies: Uncoded Allergy Nasal Verified 09/19/22 10:27 congestion Family History Mother , 56 Allergies Hypertension CVA (cerebral vascular accident) Father Heart disease Hypertension Surgical History History of hysteroscopy (06/29/22) History of parathyroidectomy History of sinus surgery History of thyroidectomy History of tonsillectomy Hx of colonoscopy Social History Smoking Status: Never smoker alcohol intake: current alcohol intake frequency: holidays/special occasions only substance use type: does not use caffeine: Yes Type: coffee Number of servings: 1 ROS <ELODIA Alegria - Last Filed: 10/17/23 22:19> ROS ED Constitutional Constitutional ED: Denies chills or fever(s) Cardiovascular Cardiovascular: Denies chest pain Respiratory/Chest Respiratory/Chest: Denies cough or dyspnea Gastrointestinal Gastrointestinal: Reports nausea and vomiting; Denies abdominal pain, constipation, diarrhea or melena Genitourinary Genitourinary ED: Reports dysuria and hematuria; Denies urinary urgency Musculoskeletal Musculoskeletal: Reports back pain Integumentary Denies rash Neurologic Neurologic: Denies weakness EXAM <ELODIA Alegria - Last Filed: 10/17/23 22:19> Physical Exam Const Vital Signs: 10/17/23 19:45 Temperature 98 F Temperature Source Temporal Pulse Rate 88 Respiratory Rate 16 Blood Pressure 165/87 H Blood Pressure Mean 113 Pulse Ox 98 Oxygen Delivery Method Room Air Positive well nourished, well developed and no apparent distress General Appearance ED: well developed HEENT Reports normocephalic and head/scalp atraumatic Mouth ED: Yes moist mucous membranes normal Eyes PERRL and EOMs intact bilaterally Neck full ROM and supple Chest Wall inspection of chest normal Resp normal respiratory effort and clear to auscultation bilaterally Cardio regular rate and regular rhythm GI soft to palpation, non-tender, non-distended and no masses Back/Spine normal ROM and normal to inspection General Back: CVA tenderness left Extremity normal to inspection and full ROM Neuro oriented x3, CN's II-XII intact bilaterally, moves all extremities, no focal motor deficits and no sensory deficits noted Sensorium / Orientation: awake and alert Psych mental status grossly normal and thought process normal Skin no rashes or lesions noted and no wounds <Dr. Gardenia Boland MD - Last Filed: 10/17/23 23:06> Physical Exam Const Vital Signs: 10/17/23 19:45 Temperature 98 F Temperature Source Temporal Pulse Rate 88 Respiratory Rate 16 Blood Pressure 165/87 H Blood Pressure Mean 113 Pulse Ox 98 Oxygen Delivery Method Room Air MDM <ELODIA Alegria - Last Filed: 10/17/23 22:19> [facility] Narrative Medical decision making narrative: Patient presenting due to left-sided flank pain that started this afternoon. She is well-appearing and in no acute distress, no history of kidney stones. She does have left-sided CVA tenderness, her abdomen is soft and nontender. She has had dysuria for over a week now and has been on 2 different antibiotics with little relief, she was also treated for a yeast infection which did not seem to help. Will obtain labs to rule out leukocytosis, KAILYN, and electrolyte abnormality. UA will be obtained to rule out UTI. CT of the abdomen and pelvis without contrast will be obtained to rule out kidney stone, diverticulitis, and other etiology. She will be given IV fluids, Toradol, and Zofran. On examination she reports improvement of her symptoms. CT scan shows a 2 to 3 mm calculus in the distal portion of the left ureter. She will be given prescriptions for Flomax, Zofran, and Percocet. Urine is pending but considering patient has been on multiple rounds of antibiotics, she would like to be discharged home and we will give her her a call regarding her UA if it is abnormal. She will be discharged home in stable condition and is comfortable with plan. Lab Data Attestation: I reviewed the patient's lab results. Lab results narrative: BUN 21, creatinine 1.1 Labs: Laboratory Results - last 24 hr 10/17/23 20:25 WBC 11.0 RBC 4.33 Hgb 14.2 Hct 43.4 MCV 100.2 H MCH 32.8 H MCHC 32.7 RDW Std Deviation 43.7 RDW Coeff of Shruthi 11.8 Plt Count 267 MPV 9.9 Immature Gran % (Auto) 0.400 Neut % (Auto) 84.6 H Lymph % (Auto) 8.2 L Donley % (Auto) 6.4 Eos % (Auto) 0.1 Baso % (Auto) 0.3 Absolute Neuts (auto) 9.3 H Absolute Lymphs (auto) 0.90 Nucleated RBC % 0 Sodium 136 Potassium 4.5 Chloride 106 Carbon Dioxide 26.0 Anion Gap 4 L BUN 21 H Creatinine 1.10 H Estim Creat Clear Calc 52.71 Est GFR (MDRD) Af Amer 65 Est GFR (MDRD) Non-Af 54 L BUN/Creatinine Ratio 19.1 Glucose 137 H Calcium 9.9 Radiography Diagnostic Testing: Clinical Impression(s) from Imaging Studies Abdomen/Pelvis CT 10/17/23 19:59 IMPRESSION: Mild to moderate left renal obstruction secondary to tiny calculus in the distal intramural portion of the left ureter. Electronically Signed: Moncho Candelario MD at 22:01 EDT , <Dr. Gardenia Boland MD - Last Filed: 10/17/23 23:06> [facility] Lab Data Labs: Laboratory Results - last 24 hr 10/17/23 20:25 WBC 11.0 RBC 4.33 Hgb 14.2 Hct 43.4 MCV 100.2 H MCH 32.8 H MCHC 32.7 RDW Std Deviation 43.7 RDW Coeff of Shruthi 11.8 Plt Count 267 MPV 9.9 Immature Gran % (Auto) 0.400 Neut % (Auto) 84.6 H Lymph % (Auto) 8.2 L Donley % (Auto) 6.4 Eos % (Auto) 0.1 Baso % (Auto) 0.3 Absolute Neuts (auto) 9.3 H Absolute Lymphs (auto) 0.90 Nucleated RBC % 0 Sodium 136 Potassium 4.5 Chloride 106 Carbon Dioxide 26.0 Anion Gap 4 L BUN 21 H Creatinine 1.10 H Estim Creat Clear Calc 52.71 Est GFR (MDRD) Af Amer 65 Est GFR (MDRD) Non-Af 54 L BUN/Creatinine Ratio 19.1 Glucose 137 H Calcium 9.9 Radiography Diagnostic Testing: Clinical Impression(s) from Imaging Studies Abdomen/Pelvis CT 10/17/23 19:59 IMPRESSION: Mild to moderate left renal obstruction secondary to tiny calculus in the distal intramural portion of the left ureter. Electronically Signed: Moncho Candelario MD at 22:01 EDT Reading Location ID and State: [facility] / [place] Tel , Service support , Treatment and Re-Evaluation :: Patient seen and evaluated with CECY. I personally interviewed and examined the patient. I was involved in all aspects of patient's orders, interpretation of results, and treatment. Patient presents secondary to left flank pain. She has had some intermittent dysuria for the last week or so. She has been seen and placed on antibiotics twice, although she states they told her her urine did not look infected. She was also seen by gynecology and had an exam that did not reveal obvious yeast infection, but she has been treated with 2 different types of yeast medication. Patient states today she got rather abrupt left flank pain. She does not have a history of kidney stones. No history of pyelonephritis. She had some slight chills today but no fever. Patient sitting upright in bed no acute distress. Head and neck examination unremarkable. Heart is regular rate and rhythm. Lung sounds are clear. Abdomen is soft and nontender. Patient did receive analgesics and IV fluids. CBC was normal white count 11.8 with 84% neutrophils. Hemoglobin is 14.2. Chemistry studies unremarkable with creatinine of 1.10. CT scan of the flank reveals mild to moderate left renal obstruction secondary to a tiny calculus in the distal intramural portion of the left ureter. Test results discussed with the patient. She is given analgesics for home. Return instructions provided. Discharge Plan Triage Chief Complaint: Flank Pain ED Midlevel Provider: Evangelina Sweeney ED Provider: Gardenia Boland Dx/Rx/DC Orders Clinical Impression: Kidney stone on left side Instructions: ED Kidney Stone with Pain Prescriptions: New oxycodone-acetaminophen [Percocet] 5-325 mg tablet 1 tab PO Q6H PRN (Reason: pain) 3 Days Qty: 10 0RF ondansetron 4 mg tablet,disintegrating 4 mg PO Q8H PRN PRN (Reason: Nausea) Qty: 10 0RF tamsulosin [Flomax] 0.4 mg capsule 0.4 mg PO DAILY Qty: 5 0RF No Action cholecalciferol (vitamin D3) 125 mcg (5,000 unit) tablet 125 mcg PO Q OTHER DAY levothyroxine 125 mcg tablet 125 mcg PO DAILY Patient Comments: take 1 tablet by mouth once daily fexofenadine [Ingrid Allergy] 180 mg tablet 180 mg PO DAILY Bonafide Relizen 2 cap PO DAILY lisinopril 10 MG tablet 10 mg PO DAILY fluticasone propionate 50 mcg/actuation spray,suspension 2 spray intranasal DAILY PRN (Reason: Allergies) Primary Care Provider: Tawana Lange Referrals: Tawana Lange MD [Primary Care Provider] - 5-7 Days Wendy Verduzco MD [Med Staff - Active Staff] - 3-5 Days if not improving Activity Restrictions/Additional Instructions: Please follow-up with urology if no improvement of your symptoms. Return for any worsening of your symptoms. Disposition Disposition: Home, Self Care
[2023-10-17 20:34] LABS: Absolute Neutrophil Count 9.3 X10^3/uL (2.0-7.7); Basophil# 0.03 X10^3/uL; Basophil% 0.3 % (0-1); Eosinophil# 0.01 X10^3/uL; Eosinophils% 0.1 % (0-5); Hematocrit 43.4 % (37-47); Hemoglobin 14.2 g/dL (12.0-15.0); Lymphocyte % 8.2 % (19-41); Mean Corp Hgb Conc 32.7 g/dL (32-36); Mean Corpuscular Hgb 32.8 pg (27.0-32.0); Mean Corpuscular Volume 100.2 fL (81-99); Mean Platelet Vol. 9.9 fl (6.2-12.0); Monocyte% 6.4 % (0-10); NRBC Flagged by Analyzer 0 % (0-5); Neutrophil # 9.28 X10^3/uL (2.7-7.7); Neutrophil % 84.6 % (47-70); Platelet Count 267 K/mm3 (150-450); RBC Distribution Width CV 11.8 % (11.6-14.6); RBC Distribution Width SD 43.7 fl (35.1-43.9); Red Blood Count 4.33 M/mm3 (4.2-5.4)
[2023-10-17] MEDS: Ketorolac 15 MG/ML Vial IV (20:47)
[2023-10-17] MEDS: Ondansetron 4 MG/2 ML Vial IV (20:47)
[2023-10-17] MEDS: 0.9% Normal Saline (1000mL) 1,000 ML 1000 ML IV (20:47)
[2023-10-17 20:48] LABS: Anion Gap 4 (5-15); BUN 21 mg/dL (7-18); BUN/Creat Ratio 19.1 RATIO (10-20); Calcium,Total 9.9 mg/dL (8.5-10.1); Chloride 106 mmol/L (98-107); EST Glomerular Filtration Rate 54 mL/min (>60); Est Glom Filt Rate - Afr Amer 65 mL/min (>60); Estimated Creatinine Clearance 52.71 ml/min; Glucose 137 mg/dL (74-106); Potassium 4.5 mmol/L (3.5-5.1); Sodium Level 136 mmol/L (136-145)
[2023-10-17 23:26] LABS: Bacteria 0 SEEN /hpf (None Seen); Mucous, Urine 0 SEEN /hpf (<or=2+); Red Blood Cells-Urine 0 SEEN /hpf (0-5); White Blood Cells 0 SEEN /hpf (0-5)
[2023-10-17 23:28] LABS: Glucose, Dipstick Normal (Normal); Ketone-Dipstick 5 mg/dl (Negative); Leukocyte Esterase-Dipstick Negative /ul (Negative); Nitrite-Dipstick Negative (Negative); Occult Blood-Urine 50 /ul (Negative); Protein-Dipstick Negative (Negative); Specific Gravity, Urine 1.015 (1.002-1.030); Urine Bilirubin Dipstick Negative (Negative); Urine Urobilinogen Normal (Normal)
[2023-10-17 23:31] LABS: Color, Urine Yellow (Yellow); Urine Clarity Clear (Clear)
[2023-10-17 23:37] VITALS: BP 131/75; PULSE 71; RESP 16; TEMP 36.8; O2SAT 98
[2023-10-17 23:42] LABS: Squamous Epithelial Cells - UA 5-10 SEEN /hpf (5-10)
== END 2023-10-17 23:49 | disposition home or self-care (01) ==
PROVIDERS: Physician Assistant; Emergency Provider Emergency Medicine; PCP Internal Medicine; Visit Provider Emergency Medicine
DX: N20.2 Calculus of kidney with calculus of ureter (principal); B37.9 Candidiasis, unspecified; J45.909 Unspecified asthma, uncomplicated; I10 Essential (primary) hypertension
CPT/HCPCS: 74176; 80048; 81001; 85025; 96361; 96374; 96375; 99283; J7030; A4216; J2405